=== PATIENT | male | born 1945 | race Caucasian/White ===

== ENCOUNTER 2023-05-23 10:08 | Outpatient (CLI) | payer MEDICARE, SELFPAY ==
--- NOTE | 2023-05-23 11:00 | NEURO_ITS ---
Impression: # Complains of numbness of right hand. # Right Carpal Tunnel Syndrome. # No ulnar neuropathy. # Needle/EMG exam not requested. Nerve Conduction Studies Anti Sensory Summary Table Stim Site NR Peak (ms) P-T Amp (?V) Site1 Site2 Delta-P (ms) Dist (cm) Luis Manuel (m/s) Right Median Anti Sensory (2-3nd Digit) Wrist 5.0 55.5 Wrist 2-3nd Digit 5.0 14.0 28 Wrist 4.7 18.6 Wrist 2-3nd Digit 5.0 14.0 28 Right Radial Anti Sensory (Base 1st Digit) Wrist 2.7 8.2 Wrist Base 1st Digit 2.7 0.0 Right Ulnar Anti Sensory (5th Digit) Wrist 3.0 25.6 Wrist 5th Digit 3.0 14.0 47 Motor Summary Table Stim Site NR Onset (ms) O-P Amp (mV) Site1 Site2 Delta-0 (ms) Dist (cm) Luis Manuel (m/s) Right Median Motor (Abd Poll Brev) Wrist 4.4 2.6 Elbow Wrist 5.8 29.0 50 Elbow 10.2 2.6 Right Ulnar Motor (Abd Dig Minimi) Wrist 2.6 4.9 A Elbow Wrist 5.6 30.0 54 A Elbow 8.2 3.6 F Wave Studies NR F-Lat (ms) L-R F-Lat (ms) Right Median (Mrkrs) (Abd Poll Brev) 35.54 Right Ulnar (Mrkrs) (Abd Dig Min) 31.56 MTDD
== END 2023-05-23 10:09 | disposition home or self-care (01) ==
LOC: ANHNEURO 10:11
PROVIDERS: Visit Provider Orthopaedic Surgery
DX: R20.0 Anesthesia of skin (principal); G56.01 Carpal tunnel syndrome, right upper limb
CPT/HCPCS: 95909